=== PATIENT | male | born 1965 | race Caucasian/White ===

== ENCOUNTER 2017-06-13 19:00 | Emergency (ER) | payer OTHER ==
[~2017-06-13] VITALS: Ht 167.6 cm; Wt 127.0 kg
[~2017-06-13 19:00] MED LIST: ENALAPRIL MALEAT5 MG; GLUCOPHAGE XR500 MG
== END 2017-06-14 03:06 | disposition home or self-care (01) ==
LOC: ER 19:00 → CPU-OBS 19:01 → ER 06-14 03:06
DX: R07.89 Other chest pain (principal)
CPT/HCPCS: G0378; G0379; 93005

== ENCOUNTER 2018-06-04 17:14 | Emergency (ER) | payer OTHER ==
[~2018-06-04] VITALS: Ht 152.4 cm; Wt 124.7 kg
== END 2018-06-04 22:11 | disposition home or self-care (01) ==
LOC: ER 17:14
DX: K52.9 Noninfective gastroenteritis and colitis, unspecified (principal)

== ENCOUNTER 2018-10-22 21:34 | Emergency (ER) | payer OTHER ==
[~2018-10-22] VITALS: Ht 167.6 cm; Wt 108.9 kg
== END 2018-10-22 23:19 | disposition home or self-care (01) ==
LOC: ER 21:34
DX: F41.1 Generalized anxiety disorder (principal); R00.2 Palpitations